=== PATIENT | female | born 1970 | race Caucasian/White ===

== ENCOUNTER → 2016-10-01 | Day surgery (SDC) | payer OTHER ==
[~2016-10-01] VITALS: Ht 167.6 cm; Wt 77.5 kg
[~2016-10-01] MED LIST: FENTAnyl 50 MCG/ML VIAL ONE; MIDAZOLAM 1 MG/ML 2 ML INJ ONE; NO MEDS
[2016-10-01 15:59] VITALS: Ht 167.6 cm; Wt 77.5 kg
[2016-10-01 16:11] VITALS: BP 109/55; PULSE 66; RESP 20
--- NOTE | 2016-10-01 16:45 | OPPN ---
Date/Time of Note Date/Time of Note DATE: 10/01/16 TIME: 16:43 Operative Report Preoperative Diagnosis Screening Postoperative Diagnosis Internal hemorrhoids No colon neoplasm was identified Operation/Procedure Performed Colonoscopy Provider: DANIEL ALVARENGA MD Anesthesia Type: moderate sedation Estimated blood loss: none Transfusion Required: no Specimen: none Grafts/Implants: none Complications: no DANIEL ALVARENGA MD Oct 01, 2016 16:45
[2016-10-01 17:08] VITALS: BP 111/58; PULSE 69; RESP 14
--- NOTE | 2016-10-01 20:06 | GILP ---
DATE OF PROCEDURE: 10/01/2016 PROCEDURE PERFORMED: Colonoscopy. SURGEON: Wally Ambrose MD PREOPERATIVE DIAGNOSIS: Screening colonoscopy. POSTOPERATIVE DIAGNOSES: 1. Colonoscopy all the way to the cecum. 2. Internal hemorrhoids. 3. No colon neoplasm was identified. INDICATION: Ms. Radha Ferrer is a 46-year-old female patient who had a strong family history of colon cancer. The patient was scheduled for screening colonoscopy. The procedure and possible complications were well explained to the patient. The patient understood and consented to the procedure. DESCRIPTION OF PROCEDURE: Under influence of fentanyl and Versed, the colonoscope was carefully introduced in the rectum and under direct vision it was advanced all the way to the cecum. Findings, the patient had internal hemorrhoids. No colon neoplasm was identified. She tolerated the procedure very well. There is no complications from the procedure. At the end of procedure she was awake with stable vital signs and she was discharged home in care of her family. IMPRESSION: 1. Colonoscopy all the way to the cecum. 2. Internal hemorrhoids. 3. No colon neoplasm was identified. PLAN: Next screening colonoscopy in 10 years. Dictated By: MD RONI Barrios/alan/estevan /Document#: [id number]
== END | disposition home or self-care (01) ==
LOC: GIL 15:35
PROVIDERS: ATTEND Internal Medicine Gastroenterology
DX: Z12.11 Encounter for screening for malignant neoplasm of colon (principal); K64.8 Other hemorrhoids
CPT/HCPCS: 45378; 84703; J2250; J3010; Z7610